=== PATIENT | male | born 1960 | race Caucasian/White ===

== ENCOUNTER 2017-10-12 09:51 | Inpatient (IN) | payer BC, OTHER ==
[~2017-10-12] VITALS: Ht 180.3 cm; Wt 68.5 kg
[2017-10-12] MEDS ORDERED: diphenhydrAMINE 50 MG CAPSULE PO PRN (10:45)
[2017-10-12] MEDS ORDERED: NICOTINE POLACRILEX 4 MG GUM-PK OF TEN BC PRN (10:45)
[2017-10-12] MEDS ORDERED: ACETAMINOPHEN 325 MG TABLET PO PRN (10:45)
[2017-10-12] MEDS ORDERED: LORAZEPAM 1 MG TABLET PO PRN ×2 (10:45)
[2017-10-12] MEDS ORDERED: LORAZEPAM 2 MG/1 ML VIAL IM PRN (10:45)
[2017-10-12] MEDS ORDERED: NICOTINE 14 MG/24HR PATCH TD PRN (10:45)
[2017-10-12] MEDS ORDERED: ONDANSETRON 4 MG/2 ML VIAL IM PRN (10:45)
[2017-10-12] MEDS ORDERED: LOPERAMIDE HCL 2 MG CAPSULE PO PRN ×2 (10:45)
[2017-10-12] MEDS ORDERED: IBUPROFEN 400 MG TABLET PO PRN (10:45)
[2017-10-12] MEDS ORDERED: MAGNESIUM HYDROXIDE 30 ML LIQUID UDC PO PRN (10:45)
[2017-10-12] MEDS ORDERED: DICYCLOMINE HCL 20 MG TABLET PO PRN (10:45)
[2017-10-12] MEDS ORDERED: MIRALAX 17 GM POWD.PACK PO PRN (10:45)
[2017-10-12] MEDS ORDERED: THIAMINE HCL 200 MG/2 ML VIAL IM ONE (10:45)
[2017-10-12] MEDS ORDERED: ONDANSETRON ODT 4 MG TAB.RAPDIS SL PRN (10:45)
[2017-10-12 11:00] VITALS: BP 175/72
[2017-10-12] MEDS ORDERED: METO50TA16 PO (11:01)
[2017-10-12] MEDS ORDERED: HYDR25TA4 PO (11:01)
[2017-10-12] MEDS ORDERED: VENL75CA62 PO (11:01)
[2017-10-12] MEDS ORDERED: ASPI81TA31 PO (11:01)
--- NOTE | 2017-10-12 11:02 | NUR ---
PRE-ASSESSMENT NOTE: Pt is a 57 yo male who [facility] for medically supervised withdrawal from ETOH. Pt states he drinks 5-6 12 oz beers daily X 2 years. Pt states last drink was 5 beers last night. Pt does not appear intoxicated at this time. B/P 173/72 HR: 96 T-98.3 Pulse OX: 98%. Pt is alert and oriented X4. Color flushed. Respirations even and unlabored. NKA . No seizure history.
[2017-10-12 11:25] LABS: BASOPHILS % (AUTO) 0.3 % (0.0-2.0); EOSINOPHILS # (AUTO) 0.1 K/uL (0.0-0.7); EOSINOPHILS % (AUTO) 0.8 % (0.0-7.0); HEMATOCRIT 48.6 % (36.7-47.1); HEMOGLOBIN 16.7 g/dL (12.5-16.3); LYMPHOCYTES # (AUTO) 1.5 K/uL (20.0-40.0); LYMPHOCYTES % (AUTO) 18.2 % (20.5-51.5); MEAN CORPUSCULAR HEMOGLOBIN 33.3 uug (23.8-33.4); MEAN CORPUSCULAR HGB CONC 34 g/dL (32.5-36.3); MEAN CORPUSCULAR VOLUME 96.9 fL (73.0-96.2); MONOCYTES # (AUTO) 0.4 K/uL (2.0-10.0); MONOCYTES % (AUTO) 5.2 % (0.0-11.0); NEUTROPHILS # (AUTO) 6.4 K/uL (1.8-8.9); NEUTROPHILS % (AUTO) 75.5 % (38.5-71.5); PLATELET COUNT (AUTO) 249 K/uL (152-348); RED BLOOD CELL COUNT(AUTO) 5.02 MIL/uL (4.06-5.63); WHITE BLOOD COUNT (AUTO) 8.5 K/uL (3.6-10.2)
[2017-10-12] MEDS ORDERED: LABETALOL HCL 100 MG TABLET PO ONE (11:30)
[2017-10-12 11:35] LABS: ALANINE AMINOTRANSFERASE 22 U/L (16-63); ALKALINE PHOSPHATASE 152 U/L (50-136); AMYLASE 60 U/L (25-115); ASPARTATE AMINOTRANSFERASE 8 U/L (15-37); BILIRUBIN,TOTAL 0.4 mg/dL (0.2-1.0); CARBON DIOXIDE 33 mmol/L (21-32); CHLORIDE 98 mmol/L (98-107); CREATININE 0.9 mg/dL (0.6-1.3); GLUCOSE 121 mg/dL (74-106); MAGNESIUM 2.2 mg/dL (1.8-2.4); POTASSIUM 3.3 mmol/L (3.5-5.1); TOTAL PROTEIN, SERUM 8.2 g/dL (6.4-8.2); UREA NITROGEN, BLOOD 12 mg/dL (7-18)
[2017-10-12 11:44] LABS: THYROID STIMULATING HORMONE 3.169 mIU/mL (0.358-3.740)
[2017-10-12 11:52] LABS: *AMPHETAMINE, URINE NEGATIVE (NEGATIVE); *BARBITURATE, URINE NEGATIVE (NEGATIVE); *CANNABINOID, URINE NEGATIVE (NEGATIVE); *COCCAINE, URINE NEGATIVE (NEGATIVE); *OPIATE, URINE NEGATIVE (NEGATIVE); *PHENCYCLIDINE SCREEN,URINE NEGATIVE (NEGATIVE)
[2017-10-12 11:58] LABS: ETHANOL < 3 MG/DL (0-0)
[2017-10-12 12:00] VITALS: BP 175/74
--- NOTE | 2017-10-12 12:00 | NUR ---
ADMISSION NOTE: Pt is a 57 yo male who presents to [facility] for medically supervised withdrawal from ETOH. Pt states he drinks 5-6 12 oz beers daily X 5 years. Up to 12 beers on weekends. Pt states last drink was 5 beers last night. Pt does not appear intoxicated at this time. B/P 173/72 HR: 96 T-98.3 Pulse OX: 98%. Initial CIWA 10. C/O anxiety, mild tremors and sweating. Pt is alert and oriented X4. Color flushed. Respirations even and unlabored. NKA . No seizure history. Pt is from [place] and lives alone. 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 The patient reports signs of withdrawal are restlessness, acid reflux, agitation, irritability, anxiety, low appetite, chills, clammy Skin, depression,sweating, fine tremors, headaches and restless legs. Pt denies any of these symptoms presently. Patient has past suicide attempt in July 2017. Denies SI at this time. Hx of broken right heel in 2017 after falling at work. Wore a "boot" for 6 months. Pt states has PMD in [place]. Dr. Huy Mo. Pt was in one detox unit in [address] [place] [address] in [place] for 30 days. Longest period of sobriety is 1 year in 2013. Pt had DUI arrest in 2015. Pt oriented to unit and encouraged to notify nurse of any discomfort or withdrawal symptoms. Pt resting in bed. "I'm tired." Safety precautions observed. Call light within reach. Will continue to monitor. Addendum: 10/12/17 at 1433 by DARRICK LYLE RN Patient has rash on back. No urticaria. Picture taken and placed in chart.
[2017-10-12] MEDS ORDERED: METOPROLOL 50 MG PO SCH (13:06)
[2017-10-12] MEDS: HYDROCHLOROTHIAZIDE 25 MG PO SCH (13:22)
[2017-10-12] MEDS ORDERED: HYDROCORTISONE 1% CREAM 30 GM TUBE TP ONE (14:30)
--- NOTE | 2017-10-12 14:51 | NUR ---
Pt sleeping. Unable to assess CIWA at this time.
[2017-10-12] MEDS ORDERED: hydrALAZINE HCL 50 MG TABLET PO PRN (15:30)
--- NOTE | 2017-10-12 15:43 | NUR ---
Hydrocortisone cream applied to back rash. CIWA 7. Pt with fine tremors, anxiety and sweating.
[2017-10-12] MEDS: VENLAFAXINE XR 75 MG CAP.SR.24H PO SCH (16:20)
[2017-10-12 17:18] VITALS: BP 120/60
--- NOTE | 2017-10-12 18:40 | NUR ---
END OF SHIFT NOTE: Report given to night supervisor nurse. Pt is a 57 yo male who presents to [facility] for medically supervised withdrawal from ETOH. Pt states he drinks 5-6 12 oz beers daily X 5 years. Up to 12 beers on weekends. Pt states last drink was 5 beers last night. Pt is on PRN Ativan at this time. He has not required any prn's. Pt has rash on back. Possible heat rash. Picture taken and placed in chart. Hx of suicide attempt in 2018. Denies SI. Pt placed on Effexor. Last CIWA 7 @ 1600. Safety precautions observed. Call light within reach.
--- NOTE | 2017-10-12 19:40 | NUR ---
Start of Shift Patient Received. Patient is noted in his room awake alert and verbally responsive. Breathing even and non labored. Per endorsement, patient was admitted today for ETOH Withdrawal and is currently receiving PRN Medications for increased signs and symptoms. Hydrocortisone received for rash noted to his back. He continues on routine home medications. No other PRN medications administered. Last noted CIWA 7. All needs attended to promptly. Will continue plan of care as ordered.
[2017-10-12 20:46] VITALS: BP 148/60
[2017-10-12] MEDS: METOPROLOL TART PO SCH (21:10)
[2017-10-13 00:25] VITALS: BP 109/53
[2017-10-13 04:30] VITALS: BP 110/60
[2017-10-13 06:07] LABS: HEPATITIS B SURFACE AG Negative (Negative)
--- NOTE | 2017-10-13 07:16 | NUR ---
End of Shift Patient Received. Patient is noted in his room awake, alert and verbally responsive. Breathing even and non labored. Patient is currently receiving PRN Medications for increased signs and symptoms. He is noted with a rash on his back with hydrocortisone ordered. He continues on routine home medications. No other PRN medications administered. Last noted CIWA 4. Patient noted to sleep a total of 7 hours. All needs attended to promptly. Will endorse to continue plan of care as ordered.
--- NOTE | 2017-10-13 07:30 | NUR ---
START OF SHIFT Pt 57 y/o male admitted for etoh withdrawal. Pt received in room awake sitting on chair. Pt alert and oriented to name, place, and time. Perrla. Skin warm and dry touch. Respirations even and unlabored. Bilateral hand tremors noted. Pt anxious this morning, appears fidgety. Pt states occasionally hears some noise at night. Pt also appears disheveled. Empty drink bottles scattered throughout the room. Encouraged to maintain hygiene. Pt appears worried and preoccupied. It was reported that pt slept for 6 hours last night. Last reported ciwa=4 @2100. Pt is on prn ativan. Bed on lowest position with side rails x 2 up for safety. Call light within reach.
[2017-10-13 08:00] VITALS: BP 122/62
[2017-10-13] MEDS: THIAMINE HCL 100 MG TABLET PO SCH (08:32)
[2017-10-13] MEDS: HYDROCHLOROTHIAZIDE 25 MG PO SCH (08:32)
[2017-10-13] MEDS: MULTIVITAMINS,THERAPEUTIC TABLET PO SCH (08:32)
[2017-10-13] MEDS: METOPROLOL TART PO SCH ×2 (08:32→21:06)
[2017-10-13] MEDS: VENLAFAXINE XR 75 MG CAP.SR.24H PO SCH (08:32)
[2017-10-13] MEDS: ASPIRIN 81 MG TAB.CHEW PO SCH (08:33)
[2017-10-13] MEDS: FOLIC ACID 1 MG TABLET PO SCH (08:33)
[2017-10-13] MEDS ORDERED: TUBERCULIN,PURIF.PROT.DERIV. 5 TU/0.1 ML TEST ID ONE (09:00)
[2017-10-13] MEDS ORDERED: PATIENT MAY USE OWN MED- MD OK PO SCH ×2 (09:00)
[2017-10-13 12:00] VITALS: BP 135/50
[2017-10-13] MEDS ORDERED: POTASSIUM CHLORIDE 20 MEQ TAB.PRT.SR PO ONE (14:00)
[2017-10-13 16:00] VITALS: BP 120/52
--- NOTE | 2017-10-13 19:05 | NUR ---
END OF SHIFT Pt 57 y/o male admitted for etoh withdrawal. Pt alert and oriented to name, place, and time. Perrla. Skin warm and moist to touch. Respirations even and unlabored. Bilateral hand tremors noted. Pt appears disheveled. Empty drink bottles scattered throughout the room. Encouraged to maintain hygiene. Pt with minimal peer interaction. Pt observed mostly isolative to room throughout the day. Pt attended group activity. Pt was seen by MD today. Pt mediation compliant and tolerated well. No ASE noted. Ciwas=6@0800, 4@1200, and 6@1600. Pt is on prn ativan. Bed on lowest position with side rails x2 up for safety. Herminio light within reach.
--- NOTE | 2017-10-13 19:30 | NUR ---
Start of Shift Patient Received. Patient is noted in his room awake, alert and verbally responsive. Breathing even and non labored. Per endorsement, patient continues on PRN medications for increased signs and symptoms of withdrawal. Hydrocortizone ordered for rash noted to his back. He continues on routine home medications. No other PRN medications administered. Last noted CIWA 6. All needs attended to promptly. Will endorse to continue plan of care as ordered.
[2017-10-13 21:00] VITALS: BP 147/46
[2017-10-14 00:28] VITALS: BP 121/60
--- NOTE | 2017-10-14 04:14 | NUR ---
Vitals Refused Patient is noted in bed sleeping. breathing even and non labored. No signs of restlessness or facial grimacing noted. Patient refused vitals. Respirations noted to be 16. CIWA not able to be completed as per order. Will continue to monitor. Addendum: 10/14/17 at 0416 by PEPE DE LA CRUZ LVN Amended: Links added.
--- NOTE | 2017-10-14 07:08 | NUR ---
End of Shift Patient is in bed sleeping. Breathing even and non labored. Patient continues on PRN medications for increased signs and symptoms of withdrawal. Hydrocortisone ordered for rash noted to his back. He continues on routine home medications. No other PRN medications administered. Last noted CIWA 4. He is noted to sleep a total of 8 hours. All needs attended to promptly. Will endorse to continue plan of care as ordered.
--- NOTE | 2017-10-14 07:30 | NUR ---
START OF SHIFT Pt 57 y/o male admitted for etoh withdrawal. Pt received in room awake sitting on chair watching television. Pt alert and oriented to name, place, and time. Perrla. Skin warm and dry touch. Respirations even and unlabored. Bilateral hand tremors noted. Pt appears disheveled. Clothes and empty drinking bottles scattered throughout the room. Encouraged to maintain hygiene. Pt anxious about when he will be discharged. It was reported that pt slept for 8 hours last night. Pt is on a prn ativan. Last reported ciwa=4@2100. Bed on lowest position with side rails x2 up for safety. Call light within reach.
[2017-10-14 08:00] VITALS: BP 124/50
[2017-10-14] MEDS: HYDROCHLOROTHIAZIDE 25 MG PO SCH (08:19)
[2017-10-14] MEDS: METOPROLOL TART PO SCH ×2 (08:19→20:40)
[2017-10-14] MEDS: MULTIVITAMINS,THERAPEUTIC TABLET PO SCH (08:19)
[2017-10-14] MEDS: VENLAFAXINE XR 75 MG CAP.SR.24H PO SCH (08:19)
[2017-10-14] MEDS: FOLIC ACID 1 MG TABLET PO SCH (08:19)
[2017-10-14] MEDS: THIAMINE HCL 100 MG TABLET PO SCH (08:19)
[2017-10-14] MEDS: ASPIRIN 81 MG TAB.CHEW PO SCH (08:24)
[2017-10-14 12:00] VITALS: BP 140/48
[2017-10-14 16:00] VITALS: BP 131/58
--- NOTE | 2017-10-14 19:40 | NUR ---
Start of Shift Patient Received. Patient is in his room awake, alert and verbally responsive. Breathing even and non labored. Patient continues on PRN medications for increased signs and symptoms of withdrawal. He is set for discharge tomorrow 10/15/17. Hydrocortisone ordered for rash noted to his back. He continues on routine home medications. No PRN medications administered. Last noted CIWA 4. All needs attended to promptly. Will continue plan of care as ordered.
--- NOTE | 2017-10-14 19:45 | NUR ---
END OF SHIFT Pt 57 y/o male admitted for etoh withdrawal. Pt alert and oriented to name, place, and time. Perrla. Skin warm and moist to touch. Respirations even and unlabored. Bilateral hand tremors noted. Pt appears disheveled. Food wrappings scattered throughout the room. Encouraged to maintain hygiene. Pt with minimal peer interaction. Pt observed mostly isolative to room throughout the day. Pt attended group activity. Pt was seen by MD today. Pt mediation compliant and tolerated well. No ASE noted. Ciwas=4@0800, 4@1200, and 4@1600. Pt is scheduled to be discharged tomorrow. Bed on lowest position with side rails x2 up for safety. Herminio light within reach.
[2017-10-14 20:38] VITALS: BP 157/60
[2017-10-15 00:02] VITALS: BP 123/56
[2017-10-15 04:25] VITALS: BP 119/53
--- NOTE | 2017-10-15 07:10 | NUR ---
End of Shift Patient is noted in bed sleeping. Breathing even and non labored. Patient continues on PRN medications for increased signs and symptoms of withdrawal. He is set for discharge today 10/15/17. Hydrocortisone ordered for rash noted to his back. He continues on routine home medications. No PRN medications administered. Last noted CIWA 4. All needs attended to promptly. Patient is noted to sleep a total of 7 hours. Will endorse to continue plan of care as ordered.
--- NOTE | 2017-10-15 07:39 | NUR ---
START OF SHIFT Pt is 57 yr old male, AA&Ox4. Pt was admitted on 10/12/17 for ETOH withdrawal and was on PRN for s/s of w/d. Received report from sales operations analyst nurse. No PRN's were given. Last CIWA score was 4 during the night. Pt slept for 7 hrs. Pt is to be discharged to [facility] today on 10/15/17. Pt states of feeling anxious in regards to discharged. pt was explained the process of discharged to ease the anxiety. Pt was able to verbalize understanding. Skin is intact, warm and moist to touch. Safety precautions observed. Call light is within reach. Will continue to monitor.
[2017-10-15 08:08] VITALS: BP 124/53
[2017-10-15] MEDS: HYDROCHLOROTHIAZIDE 25 MG PO SCH (08:41)
[2017-10-15] MEDS: THIAMINE HCL 100 MG TABLET PO SCH (08:41)
[2017-10-15] MEDS: FOLIC ACID 1 MG TABLET PO SCH (08:41)
[2017-10-15] MEDS: METOPROLOL TART PO SCH (08:41)
[2017-10-15] MEDS: ASPIRIN 81 MG TAB.CHEW PO SCH (08:41)
[2017-10-15] MEDS: VENLAFAXINE XR 75 MG CAP.SR.24H PO SCH (08:41)
[2017-10-15] MEDS: MULTIVITAMINS,THERAPEUTIC TABLET PO SCH (08:41)
--- NOTE | 2017-10-15 09:30 | NUR ---
DISCHARGE NOTE Pt is 57 yr old male, AA&Ox4. Pt was admitted on 10/12/17 for ETOH withdrawal and was on PRN for s/s of w/d. Pt was cooperative with medication regimen and plan of care. Pt was noted with anxiety due to discharged but is able to cope with anxiety level. No SI/HI noted. Pt was educated on discharged summary and prescriptions. Pt was able to verbalize understanding. Pt was discharged off the unit at 0920 in stable condition. Pt left with all belongings, valuables and home medication.
== END 2017-10-15 09:20 | DRG 895 ==
LOC: SRC 10:17
PROVIDERS: ADMIT Internal Medicine; ATTEND Internal Medicine
PROC: HZ2ZZZZ Detoxification Services for Substance Abuse Treatment (ICD-10-PCS; principal; 2017-10-12)
PROC: HZ41ZZZ Group Counseling for Substance Abuse Treatment, Behavioral (ICD-10-PCS; 2017-10-13)
DX: F10.232 Alcohol dependence with withdrawal with perceptual disturbance (principal); E87.3 Alkalosis; Y90.0 Blood alcohol level of less than 20 mg/100 ml; F17.210 Nicotine dependence, cigarettes, uncomplicated; E86.0 Dehydration; F32.9 Major depressive disorder, single episode, unspecified; E87.6 Hypokalemia; Z81.1 Family history of alcohol abuse and dependence; Z83.3 Family history of diabetes mellitus; Z82.49 Family history of ischemic heart disease and other diseases of the circulatory system; I15.9 Secondary hypertension, unspecified; Z91.5 Personal history of self-harm; R73.9 Hyperglycemia, unspecified; R74.8 Abnormal levels of other serum enzymes
CPT/HCPCS: 36415; 70030-TC; 80307; 83735; 84443; 85025; 86580; 86592; 86705; 86803; 87340; 87806; G0480; J3411